=== PATIENT | male | born 1985 | race Caucasian/White ===

== ENCOUNTER 2016-11-02 02:40 | Emergency (ER) | payer SELFPAY ==
--- NOTE | ~2016-11-02 | ER ---
PATIENT'S NAME: TANO AVALOS [facility] AGE: 30 Y [address] ROOM: [place] [address] LOCATION: [facility] ADMIT DATE: 11/02/2016 ER/Outpatient Report DISCHARGE DATE: FAMILY PHYSICIAN: Physician, Unknown ATTENDING PHYSICIAN: Tj Christianson Admission date and time documented in medical record. I saw the patient at 0240 hours. CHIEF COMPLAINT: Medical clearance. HISTORY OF PRESENT ILLNESS: The patient is a 30-year-old male, who was Tased. Brought to the emergency room by [facility] for medical clearance for [facility]. One of the Taser probes was stuck in his shirt, these were removed and dispensed in the sharp container. The patient has 2 arvizu in his mid upper back where the Tasers hit. He also has some redness around that area. He also has some left flank and left shoulder pain. He has chronic left shoulder pain. He says that he injured his left flank while working on a car couple days ago. No recent coughs, colds, flus, fever, chills, or sweats. No headache, eyes, ears, nose, throat, neck, or spine pain. No chest pain, shortness of breath. No abdominal pain, nausea, vomiting, diarrhea, or urinary complaints. No history of neuro changes, psych issues, endocrine problems. HOME MEDICATIONS: None. ALLERGIES: NONE. SOCIAL HISTORY: Nonsmoker and nondrinker. SIGNIFICANT PAST MEDICAL HISTORY: Negative. OPERATIONS: None. REVIEW OF SYSTEMS: All systems reviewed by me are negative with the exception of those discussed in the history of present illness. PHYSICAL EXAMINATION: PATIENT'S NAME: TANO AVALOS [facility] AGE: 30 Y [address] ROOM: [place] [address] LOCATION: [facility] ADMIT DATE: 11/02/2016 ER/Outpatient Report DISCHARGE DATE: FAMILY PHYSICIAN: Physician, Unknown ATTENDING PHYSICIAN: Tj Christianson VITAL SIGNS: Temperature 98.5 tympanic, pulse 127, respirations 16, O2 saturation on room air is 96%, blood pressure 152/86. HEAD: Normocephalic. No abrasion, contusion, laceration, swelling of the scalp or face. EYES: Extraocular muscles intact. PERRL. Sclerae and conjunctivae clear, nonicteric. EARS: Clear TMs bilaterally. NOSE: Clear. THROAT: Clear. Mucous membranes moist. Teeth, jaw intact. NECK: No nuchal rigidity. No thyromegaly or cervical lymphadenopathy. No tenderness. SPINE: Negative. LUNGS: Clear good air flow. No rales, rhonchi, or wheezes. HEART: Regular. Pulses are palpable. ABDOMEN: Soft. Some questionable left flank pain. No bruising. No swelling. Good bowel tones. No organomegaly or abnormal mass palpable. PELVIS: Intact. EXTREMITIES: No peripheral edema, cyanosis, or deformity. The patient has some tenderness in the left shoulder, but no dislocation or evidence of separation. No deformity. NEUROVASCULAR: Intact. SKIN: Clear, other than the 2 probe arvizu from the Taser in his mid left upper mid back. IMPRESSION: 1. Medical clearance. 2. The patient was Tased. PLAN: Medical clearance report signed and filled out. The patient discharged from the emergency department in the care of [facility]. The patient is going to [facility]. Follow up with personal physician as needed. MD JOVANNA MCKEON/modl /[id number] d: 11/02/16 0326 t: 11/02/16 0342, OUTPATIENT REPORT
== END 2016-11-02 02:55 | disposition disaster alternative care site (69) ==
LOC: GMED 02:40
DX: T75.4XXA Electrocution, initial encounter (principal); M25.512 Pain in left shoulder; G89.29 Other chronic pain; W86.8XXA Exposure to other electric current, initial encounter